=== PATIENT | male | born 1965 | race Caucasian/White ===

== ENCOUNTER → 2017-10-09 12:34 | Outpatient (CLI) | payer BC ==
[2017-10-09 14:56] LABS: MACROPHAGES BF 8 %; NEUT - BF 6 %
== END | disposition home or self-care (01) ==
LOC: D.LABREF 12:34
PROVIDERS: Nurse Practitioner Family
DX: M25.561 Pain in right knee (principal)

== ENCOUNTER 2020-03-09 06:54 | Emergency (ER) | payer SELFPAY ==
[~2020-03-09] VITALS: Ht 180.3 cm; Wt 90.9 kg
[2020-03-09 07:08] VITALS: Ht 180.3 cm; Wt 90.9 kg
[2020-03-09] MEDS ORDERED: BUPRENORPHINE HC8 MG SL (07:10)
[2020-03-09] MEDS ORDERED: CELEBREX 100 M100 MG PO (07:10)
[2020-03-09 07:54] LABS: BASOPHILS 0.4 % (0-2); EOSINOPHILS 3.6 % (0-7); HEMATOCRIT 41.7 % (42.0-54.0); HEMOGLOBIN 14.5 g/dL (13.5-17.5); IMMATURE GRANULOCYTES 0.2 % (0-5); LYMPHOCYTES 35.3 % (15-50); MCH 31.5 pg (26.0-34.0); MCHC 34.8 g/dL (31.0-37.0); MCV 90.5 fL (80.0-100.0); MEAN PLATELET VOLUME 10.1 fL (7.4-10.4); MONOCYTES 4.9 % (2-11); NEUTROPHILS 55.6 % (40-80); PLATELET COUNT 103 10x3/uL (130-400); RBC 4.61 10x6/uL (4.20-6.10); RDW 12.7 % (11.5-14.5); WBC 4.7 10x3/uL (4.8-10.8)
[2020-03-09 07:58] LABS: CALC OSMOLALITY 272 mosm/kg (275-300); CALCIUM 8.3 mg/dL (8.5-10.1); CHLORIDE - SERUM 102 mmol/L (98-107); CREATININE - SERUM 0.8 mg/dL (0.6-1.3); GLUCOSE 122 mg/dL (74-106); POTASSIUM - SERUM 3.2 mmol/L (3.5-5.1); SODIUM 137 mmol/L (136-145); UREA NITROGEN 7 mg/dL (7-18); eGFR NON AFRICAN AMERICAN > 90 mL/min (90-120)
[2020-03-09 07:59] LABS: APTT 29.8 SECONDS (22.8-39.4); INR 0.97 (0.85-1.17); PROTIME 12.8 SECONDS (11.6-15.0)
[2020-03-09 08:03] LABS: ALBUMIN 3.8 g/dL (3.4-5.0); ALKALINE PHOSPHATASE 52 U/L (30-120); ALT (SGPT) 37 U/L (10-68); BILIRUBIN - TOTAL 0.52 mg/dL (0.2-1.3); PROTEIN - SERUM 7.6 g/dL (6.4-8.2)
[2020-03-09] MEDS ORDERED: ACETAMINOPHEN500 M1 PO (08:20)
[2020-03-09] MEDS ORDERED: CYCLOBENZAPRINE10 MG PO (08:20)
[2020-03-09] MEDS ORDERED: IBUPROFEN800 MG PO (08:20)
[2020-03-09] MEDS ORDERED: LISINOPRIL-HCT1 EAC4 PO (09:54)
[2020-03-09 10:46] VITALS: BP 162/95
== END 2020-03-09 10:49 | disposition home or self-care (01) ==
LOC: D.ER 06:54
PROVIDERS: Family Medicine
DX: S40.212A Abrasion of left shoulder, initial encounter (principal); M54.9 Dorsalgia, unspecified; R07.89 Other chest pain; S40.012A Contusion of left shoulder, initial encounter; M79.18 Myalgia, other site; T14.8XXA Other injury of unspecified body region, initial encounter; M54.2 Cervicalgia; I10 Essential (primary) hypertension; V89.2XXA Person injured in unspecified motor-vehicle accident, traffic, initial encounter; Y93.9 Activity, unspecified; Y92.9 Unspecified place or not applicable; J44.9 Chronic obstructive pulmonary disease, unspecified; Z72.0 Tobacco use

== ENCOUNTER → 2020-09-20 14:10 | Outpatient (CLI) | payer SELFPAY ==
[2020-03-09 07:08] VITALS: BMI 27.9
[~2020-09-20 14:10] MED LIST: ACETAMINOPHEN500 M1 PO; BUPRENORPHINE HC8 MG SL; CELEBREX 100 M100 MG PO; CYCLOBENZAPRINE10 MG PO; IBUPROFEN800 MG PO; LISINOPRIL-HCT1 EAC4 PO
== END | disposition home or self-care (01) ==
LOC: D.RAD 14:10
PROVIDERS: ATTEND Nurse Practitioner
DX: S60.552A Superficial foreign body of left hand, initial encounter (principal)